=== PATIENT | female | born 1970 | race Caucasian/White ===

== ENCOUNTER 2016-12-30 00:46 | Emergency (ER) | payer OTHER ==
[~2016-12-30] VITALS: Ht 157.5 cm; Wt 136.4 kg
[~2016-12-30 00:46] MED LIST: ALBU18HF INH; ALBU2.5V4 IH; CETI10TA18 PO; FLUT16SP2 NS; FLUT1DIS5 IH; HYDR-4003 PO; MELO-259 PO; MONT10TA20 PO
--- NOTE | 2016-12-30 00:54 | ED.REPORT ---
HPI-Dyspnea / Wheezing Date of Service Dec 30, 2016 ED Provider: Richard Madsen MD Patient is a 46 year old female with a history of COPD and asthma who presents to the ED via EMS complaining of shortness of breath, after 10 days of upper respiratory symptoms. Patient reports associated cough and wheezing. She believed that she was going to pass out prior to arrival due to her shortness of breath. Patient is currently on her second round of prednisone since onset of symptoms. Patient denies chest pain or fever. Nursing Notes Stated Complaint: SHORTNESS OF BREATH Nursing Notes Reviewed: Yes Allergies: Coded Allergies: Penicillins (Verified Allergy, Severe, hives and can't walk, 07/25/14) moxifloxacin (Verified Adverse Reaction, Severe, vomiting, 07/25/14) Scheduled Cetirizine HCl (Zyrtec) 10 Mg Tablet 20 MG PO AM Cetirizine HCl (Zyrtec) 10 Mg Tablet 10 MG PO HS Fluticasone Propionate (Flonase Nasal) 16 Gm [place].susp 2 SPRAYS NS DAILY Fluticasone/Salmeterol (Advair 500-50 Diskus) 1 Each Disk.w.dev 1 PUFF IH BID Meloxicam (Meloxicam) 7.5 Mg Tablet 7.5-15 MG PO DAILY Montelukast (Singulair) 10 Mg Tablet 10 MG PO HS Scheduled PRN Albuterol Neb Soln (Albuterol Neb Soln) 2.5 Mg/3 Ml Vial.neb 2.5 MG IH Q4 PRN PRN For Shortness of Breath Albuterol Sulfate (Ventolin HFA Inhaler) 200 Puff/18 Gm Inhaler 1-2 PUFF INH Q4 PRN PRN For Wheezing Hydrocodone-Acetaminophen 5-325 mg (Hydrocodone-Acetaminophen 5-325 mg) 1 Each Tablet 1 EACH PO Q6 PRN PRN For Pain Ipratropium/Albuterol Sulfate (Iprat-Albut 0.5-3(2.5) mg/3 mL Inhalant Soln) 3 Ml Ampul.neb 3 ML IH Q6 PRN PRN wheeze General Time Seen by : 00:52 Chief Complaint Cough, Shortness of breath Hx Obtained From: Patient Arrived By: Walk-in Sudden in Onset?: No Onset Occurred: More than a week ago... (10 days ago) Symptom Duration: Since onset Location: : None Recent Healthcare: No recent doctor visit, No recent hospitalization Similar Sx Previous: No Past Medical History Past Medical History Reports: Asthma, COPD Reports: Depression Past Surgical History right shoulder surgery Smoking History Current Every Day Smoker Social History Other Social History: Good social support, Local resident Ambulatory Status Independent Review of Systems Constitutional: Denies: Chills, Fever Respiratory: Reports: Non-productive cough, Shortness of breath, Wheezing Cardiovascular: Denies: Chest pain, Palpitations Complete sys rev & neg: except as marked. Psychiatric: Reports: Anxiety Physical Exam Initial Vital Signs Vital Signs (First) Date Time Temp Pulse Resp B/P Pulse Ox O2 Delivery O2 Flow Rate FiO2 12/30/16 01:01 36.8 92 24 133/74 96 Room Air 12/30/16 01:19 2 Initial VS: Reviewed, Vital signs normal Head / Eyes: Atraumatic, Normocephalic, PERRL ENT: Conjunctiva normal, No scleral icterus Abdomen / GI: Soft, Non-tender Skin: Warm, Dry, No cyanosis Neurologic: Alert, Oriented, Nonfocal Psychiatric: Mood/affect normal, Behavior normal, Normal thought content General/Constitutional: Awake, Alert Behavior: Positive: Anxious Appearance / Presentation: Positive: Obese, morbidly Neck: Supple, Full range of motion Respiratory / Chest: Breath sounds = bilat, No rales, No rhonchi Wheezing / Retractions: Positive: Accessory muscle use mild, Wheezing expiratory hyperventilating Cardiovascular: Heart rate NL, Regular rhythm, Heart sounds NL, No murmurs Re-Eval/Medical Decision Med Decision/Clinical Course Acute exacerbation of asthma caused by viral bronchitis. She has already reinitiated her prednisone with a slower taper. She has also been quite anxious about her breathing and I think that is complicating things. She responded nicely to nebulizer treatments and Ativan. Source of Hx: Old records Re-Evaluation/Progress #1: Time of Eval: 01:32 Re-Evaluation/Progress Note: Rechecked the patient. She reports being very anxious and states that whenever she gets up she feels as if she is going to have an asthma attack. She will be given medication for her anxiety. Re-Evaluation/Progress #2: Time of Eval: 02:22 Re-Evaluation/Progress Note: Patient feels improved and is ready to be discharged home. Patient understands and agrees with the plan. Discharge instructions and follow-up discussed. All questions were addressed. Return to the ED warnings given. Counseled Regarding: Diagnosis, Need for follow-up, When/why to return to ED Discharge & Departure Impression: Primary Impression: Reactive airway disease with wheezing Asthma severity: moderate persistent Asthma complication type: with acute exacerbation Qualified Code: J45.41 - Moderate persistent asthma with (acute) exacerbation Additional Impression: Anxiety Disposition: Home Discharge Condition All VS Reviewed: Yes Condition: Stable Patient Instructions: Chronic Obstructive Pulmonary Disease (ED), Upper Respiratory Infection (ED) Additional Instructions: Condition your prednisone taper. Albuterol alternating with albuterol/ ipratropium by nebulizer every 2-4 hours. Referrals: Raheel Fiore MD (PCP) Scribe Attestation Portions of this note were transcribed by Janell Cooney. I, Dr. Madsen personally performed the history, physical exam and medical decision-making; I reviewed and confirmed the accuracy of the information in the transcribed note. Signed by: Germania Orta, 12/30/2016 0241 copies to: Raheel Fiore MD, Howard L MD Dec 30, 2016 00:54 Janell Cooney Dec 30, 2016 01:01
[2016-12-30 01:01] VITALS: BP 133/74; PULSE 92; RESP 24; O2SAT 96
[2016-12-30] MEDS ORDERED: Albuterol 2.5 mg/3 mL Inhalation Solution NEB ONE (01:05)
[2016-12-30 01:19] VITALS: PULSE 96; RESP 22; O2SAT 96
[2016-12-30 01:46] VITALS: BP 140/73; PULSE 78; RESP 18; O2SAT 94
[2016-12-30] MEDS ORDERED: IPRA3AMP IH (02:33)
[2016-12-30 03:04] VITALS: BP 138/73; PULSE 99; RESP 20; O2SAT 97
== END 2016-12-30 03:11 | disposition home or self-care (01) ==
LOC: SED 00:46
DX: J45.41 Moderate persistent asthma with (acute) exacerbation (principal); F41.9 Anxiety disorder, unspecified; F17.200 Nicotine dependence, unspecified, uncomplicated; Z88.0 Allergy status to penicillin; Z88.1 Allergy status to other antibiotic agents
CPT/HCPCS: 94640; 94664; 96372; 99284; J2060; J7613